=== PATIENT | female | born 1955 | race Caucasian/White ===

== ENCOUNTER 2022-03-06 14:09 | Outpatient (CLI) | payer MEDICARE, SELFPAY ==
[2022-03-07 01:20] LABS: Albumin* 4.1 g/dL (3.3-5.0)
[2022-03-07 01:21] LABS: Chloride* 99 mmol/L (96-114); Sodium* 137 mmol/L (135-149)
[2022-03-07 01:23] LABS: Bilirubin Total* 1.6 mg/dL (0.1-1.5); Carbon Dioxide* 28 mmol/L (20-32); Cholesterol* 230 mg/dL (90-199); Creatinine* 0.9 mg/dL (0.5-1.5); Estimated Glomerular Filt Rate 70 ml/min; Total Protein* 7.7 g/dL (6.0-8.3)
[2022-03-07 01:24] LABS: Alanine Aminotransferase* 29 U/L (4-35); Alkaline Phosphatase* 268 U/L (40-150); Aspartate Amino Transferase* 44 U/L (12-35); Blood Urea Nitrogen* 23 mg/dL (7-30); Calcium* 9.1 mg/dL (8.4-10.6); Glucose* 94 mg/dL (60-115); HDL Cholesterol* 41 mg/dL (>=50); LDL Cholesterol Calculated 129 mg/dL (<100); Triglycerides* 302 mg/dL (40-149)
== END 2022-03-06 14:10 | disposition home or self-care (01) ==
PROVIDERS: PCP Family Medicine; Visit Provider Family Medicine
DX: D64.9 Anemia, unspecified (principal); I10 Essential (primary) hypertension; M35.3 Polymyalgia rheumatica; R73.03 Prediabetes
CPT/HCPCS: 80053; 80061

== ENCOUNTER 2023-03-18 12:40 | Outpatient (RCR) | payer MEDICARE, SELFPAY | END 2023-09-14 23:59 | disposition home or self-care (01) | LOC: CCIC 12:40 | PROVIDERS: PCP Family Medicine; Visit Provider Internal Medicine Hematology & Oncology | DX: I26.99 Other pulmonary embolism without acute cor pulmonale (principal) ==

== ENCOUNTER 2023-05-06 08:37 | Outpatient (CLI) | payer MEDICARE, SELFPAY | END 2023-05-06 08:38 | disposition home or self-care (01) | PROVIDERS: PCP Family Medicine; Visit Provider Family Medicine | DX: Z00.00 Encounter for general adult medical examination without abnormal findings (principal); R73.03 Prediabetes; I10 Essential (primary) hypertension; D64.9 Anemia, unspecified; M35.3 Polymyalgia rheumatica; M62.82 Rhabdomyolysis; I26.99 Other pulmonary embolism without acute cor pulmonale | CPT/HCPCS: 80053; 80061; 85651 ==

== ENCOUNTER 2023-06-16 13:22 | Outpatient (CLI) | payer MEDICARE, SELFPAY ==
--- NOTE | 2023-06-16 14:00 | CRLHL7_ITS ---
For Patients: As a result of the Century Cures Act, medical imaging exams and procedure reports are released immediately into your electronic medical record. You may view this report before your referring provider. If you have questions, please contact your health care provider. DXA BONE MINERAL DENSITY STUDY Reason for exam: Asymptomatic menopausal state. Current height (in): 60. Weight (lb): 125. Menopause age: 58. Ethnicity: White. 1. Have you had a previous hip or vertebral fracture? No. 2. Have you had any fractures during your adult life which did not result from significant trauma (e.g., auto accident)? No. 3. Did either of your parents have a hip fracture? No. 4. Do you smoke? No. 5. Have you ever taken Glucocorticoids? No. 6. Do you have rheumatoid arthritis? No. 7. Do you have secondary osteoporosis? No. 8. Do you drink 3 or more alcoholic drinks per day? No. 9. Are you being treated for osteoporosis? No. 10. Have you ever taken any of the following medications: Actonel, Evista, Fosamax, Miacalcin, Reclast, Boniva, Forteo, HRT (i.e., estrogen/hormone therapy), Protelos, Prolia, Vitamin D, Calcium, other ??? please specify. ANSWER: No. 11. Do you have any of the following medical conditions: Anorexia or bulimia, asthma or emphysema, end stage renal disease, hyperparathyroidism, any seizure disorders, cancer, inflammatory bowel diseases, hysterectomy, other ??? please specify. ANSWER: No. 12. What was your maximum height (inches)? 60. 13. Do you perform weight bearing exercise regularly? No. 14. Do you regularly consume dairy products? Yes. 15. Do you drink caffeinated beverages? Yes. If female: 16. At what age did your period start? Not provided. 17. Are you premenopausal? No. 18. How many full-term pregnancies have you had? 0. 19. Have you ever missed your period for more than 6 months in a row (not including or menopause)? No. TECHNIQUE: Bone mineral density study was performed using the [employer]. FINDINGS: The results of the study expressed as bone mineral density (BMD) are as follows: Lumbar spine L1, L3, L4: BMD: 1.049 g/cm2. T-score: 0.0. Z-score: 2.1. Neck Left: BMD: 0.685 g/cm2. T-score: -1.5. Z-score: 0.3. Right: BMD: 0.727 g/cm2. T-score: -1.1. Z-score: 0.7. Total Left: BMD: 0.821 g/cm2. T-score: -1.0. Z-score: 0.5. Right: BMD: 0.829 g/cm2. T-score: -0.9. Z-score: 0.6. IMPRESSION: Osteopenia. *Comparison exams done prior to 12/2019 were performed on different unit, [facility]. COMPARISON: Compared with scan of 09/12/2020, the bone mineral density has decreased by 12.4 percent at the hip. FRAX 10-year Fracture Risk Major Osteoporotic Fracture: 9.6% Hip Fracture: 1.3% Reported Risk Factors: [place] () Neck BMD= 0.685, BMI= 24.4 Tariq Rosenthal M.D. Diagnostic Radiologist [email or web address]/Dictated by: Tariq Rosenthal MD @ 06/17/2023 9:14:00 AM (Electronically Signed)
--- NOTE | 2023-06-16 15:00 | CRLHL7_ITS ---
For Patients: As a result of the Century Cures Act, medical imaging exams and procedure reports are released immediately into your electronic medical record. You may view this report before your referring provider. If you have questions, please contact your health care provider. INDICATION: ABNORMAL LABS COMPARISON: 04/08/2021 TECHNIQUE: Real time beckett scale imaging and color Doppler analysis was performed of the right upper quadrant. FINDINGS: The liver texture is diffusely heterogeneous with innumerable foci of increased echogenicity throughout the liver, measuring up to 12 millimeters. There is a normal appearance of the hepatic IVC and proximal abdominal aorta. There is no evidence of ascites. The gallbladder is of normal size and there are multiple echogenic and shadowing stones layering within the gallbladder. The gallbladder wall measures 2 mm in thickness. The common bile duct is of normal size and measures 7 mm in diameter at the level of the magaly hepatis. The pancreas appears normal. There is no evidence of a stone or hydronephrosis within the right kidney. The right kidney measures 7.6 cm in length. Heterogeneous area within the upper pole of the right kidney measuring 2.8 x 2.2 x 2.3 cm. IMPRESSION: Interval development of innumerable hyperechoic foci within the liver and possible upper pole right kidney lesion. Pre and postcontrast MRI of the abdomen recommended. Cholelithiasis. Dictated by Tariq Rosenthal MD @ 06/17/2023 9:41:18 AM (Electronically Signed)
== END 2023-06-16 13:23 | disposition home or self-care (01) ==
LOC: RAD 13:24
PROVIDERS: PCP Family Medicine; Visit Provider Family Medicine
DX: Z78.0 Asymptomatic menopausal state (principal); M85.89 Other specified disorders of bone density and structure, multiple sites; R74.8 Abnormal levels of other serum enzymes; K80.20 Calculus of gallbladder without cholecystitis without obstruction
CPT/HCPCS: 76705; 77080

== ENCOUNTER 2023-07-15 07:58 | Outpatient (CLI) | payer MEDICARE, SELFPAY ==
--- NOTE | 2023-07-15 08:15 | CRLHL7_ITS ---
For Patients: As a result of the Century Cures Act, medical imaging exams and procedure reports are released immediately into your electronic medical record. You may view this report before your referring provider. If you have questions, please contact your health care provider. INDICATION: Abnormal liver ultrasound; further assessment. COMPARISON: Ultrasound examination of the right upper quadrant of the abdomen April 08, 2021 and June 16, 2023. TECHNIQUE: Precontrast T1 and T2 weighted imaging; T2 haste imaging; diffusion weighted imaging; in and out of phase imaging; postcontrast imaging including subtraction; 11 cc of Dotarem contrast was injected. FINDINGS: No focal hepatic or splenic pathology. No pancreatic pathology. Cholelithiasis. No evidence of biliary duct dilatation. No adrenal pathology. A 4.3 cm simple cortical cyst lower pole left kidney. 6 mm cystic lesion distal body of the pancreas; rule out side branch IPMN. Interrupted infrarenal inferior vena cava with well compensated collateral venous channels in the anterior abdominal wall. No evidence of abdominal ascites. Impression: 1. Cholelithiasis. 2. 6 mm cystic lesion distal body of the pancreas; rule out side branch IPMN; followup MRCP and MRI of the abdomen in 12 months duration suggested next. 3. A 4.3 cm simple cortical cyst lower pole left kidney. 4. Infrarenal inferior vena cavae is absent with well compensated collateral venous channels in the anterior abdominal wall. Dictated by Ruthie Rashid MD @ 07/20/2023 11:54:28 AM (Electronically Signed)
== END 2023-07-15 07:59 | disposition home or self-care (01) ==
LOC: MRI 07:58
PROVIDERS: PCP Family Medicine; Visit Provider Family Medicine
DX: R93.2 Abnormal findings on diagnostic imaging of liver and biliary tract (principal); R74.8 Abnormal levels of other serum enzymes; K80.20 Calculus of gallbladder without cholecystitis without obstruction; K86.2 Cyst of pancreas; N28.1 Cyst of kidney, acquired
CPT/HCPCS: 74183; A9575

== ENCOUNTER 2023-08-19 10:52 | Outpatient (CLI) | payer MEDICARE, SELFPAY | END 2023-08-19 10:53 | disposition home or self-care (01) | PROVIDERS: PCP Family Medicine; Visit Provider Family Medicine | DX: M25.50 Pain in unspecified joint (principal); M35.3 Polymyalgia rheumatica; I10 Essential (primary) hypertension | CPT/HCPCS: 80053; 86140; 86431 ==

== ENCOUNTER 2023-12-06 11:14 | Outpatient (CLI) | payer MEDICARE, SELFPAY | END 2023-12-06 11:15 | disposition home or self-care (01) | PROVIDERS: PCP Family Medicine; Visit Provider Family Medicine | DX: R74.8 Abnormal levels of other serum enzymes (principal); Z11.1 Encounter for screening for respiratory tuberculosis | CPT/HCPCS: 80076; 86480 ==

== ENCOUNTER 2024-01-03 12:50 | Outpatient (CLI) | payer MEDICARE, SELFPAY | END 2024-01-03 12:51 | disposition home or self-care (01) | LOC: LKVREF 12:51 | PROVIDERS: PCP Family Medicine; Visit Provider Family Medicine | DX: D64.9 Anemia, unspecified (principal); Z13.21 Encounter for screening for nutritional disorder | CPT/HCPCS: 82607; 82728; 83540 ==

== ENCOUNTER 2024-08-17 15:45 | Outpatient (CLI) | payer MEDICAID, SELFPAY | END 2024-08-17 15:46 | disposition home or self-care (01) | PROVIDERS: PCP Family Medicine; Visit Provider Family Medicine | DX: E87.1 Hypo-osmolality and hyponatremia (principal); R74.8 Abnormal levels of other serum enzymes; I10 Essential (primary) hypertension; D64.9 Anemia, unspecified; M06.9 Rheumatoid arthritis, unspecified; K25.9 Gastric ulcer, unspecified as acute or chronic, without hemorrhage or perforation | CPT/HCPCS: 80053; 82728; 83540 ==

== ENCOUNTER 2025-01-27 15:10 | Emergency (ER) | payer MEDICARE, SELFPAY ==
[2025-01-27] VITALS (22 sets, daily range): BP systolic 177–211; BP diastolic 87–120; PULSE 75–89; RESP 9–36; TEMP 36.3; O2SAT 96–98; BMI 23.4
--- NOTE | 2025-01-27 15:11 | CRLHL7_ITS ---
For Patients: As a result of the Century Cures Act, medical imaging exams and procedure reports are released immediately into your electronic medical record. You may view this report before your referring provider. If you have questions, please contact your health care provider. INDICATION: Closed head injury, facial injury. COMPARISON: Same-day head CT and cervical spine CT TECHNIQUE: CT of the facial bones without contrast. Multiplanar axial, coronal, and sagittal reformats were reconstructed. Contrast: None. FINDINGS: BONES AND DENTITION: There is a fracture of the maxillary alveolar ridge underlying the right lateral incisor, right central incisor, and left central incisor (7-9). The fracture does not extend to involve the nasal process of the maxilla or the hard palate. The degree of displacement and involvement of the root of the teeth is best appreciated on sagittal images series 6, image 70. The fracture gap is 5 millimeters. The alveolar dental fragment is posteriorly angulated. There is multifocal dental amalgam. There are some dental caries and periapical lucencies, particularly involving the bilateral maxillary molars. There are not any other facial bone fracture. No focal bone lesions. Normal temporomandibular joint alignment. ORBITS AND GLOBES: Right eye: Normal shape and position of globe. The lens is orthotopically located. No retrobulbar hematoma. The extraocular muscles have a normal course and caliber without signs of entrapment. Left eye: Normal shape and position of globe. The lens is orthotopically located. No retrobulbar hematoma. The extraocular muscles have a normal course and caliber without signs of entrapment. Small partial bilateral mastoid effusions. No middle ear effusion. No temporal bone fracture. PARANASAL SINUS: The paranasal sinuses are well aerated. The nasal septum is not deviated. SOFT TISSUES: Swelling of the upper lip. Atherosclerotic vascular calcifications. No soft tissue mass. No foreign body. Normal appearance of the parotid and salivary glands. IMPRESSION: Mildly displaced anterior maxillary alveolar ridge fracture underlying teeth 7-9, probably class 3. Please note that all CT scans at this facility use dose modulation, iterative reconstruction, and/or weight-based dosing when appropriate to reduce radiation dose to as low as reasonably achievable. Dictated by Albertina Armendariz MD @ 01/27/2025 3:44:26 PM (Electronically Signed)
--- NOTE | 2025-01-27 15:11 | CRLHL7_ITS ---
For Patients: As a result of the Century Cures Act, medical imaging exams and procedure reports are released immediately into your electronic medical record. You may view this report before your referring provider. If you have questions, please contact your health care provider. INDICATION: Closed head injury, facial injury, neck pain. COMPARISON: None. TECHNIQUE: CT of the cervical spine without contrast. Multiplanar axial, coronal, and sagittal reformats were reconstructed. FINDINGS: No fracture. Normal alignment. Multilevel advanced disc degenerative change. Multilevel advanced facet arthritis. Multilevel neural foraminal narrowing. No severe central canal stenosis. No destructive bony lesions. No cervical prevertebral soft tissue swelling. Multinodular goiter. 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 IMPRESSION: 1. No acute or traumatic findings on cervical spine CT. 2. Multinodular goiter. Consider outpatient thyroid ultrasound if not previously performed. 3. Incidentally noted aberrant right subclavian artery. Please note that all CT scans at this facility use dose modulation, iterative reconstruction, and/or weight-based dosing when appropriate to reduce radiation dose to as low as reasonably achievable. Dictated by Albertina Armendariz MD @ 01/27/2025 3:35:03 PM (Electronically Signed)
--- NOTE | 2025-01-27 15:11 | CRLHL7_ITS ---
For Patients: As a result of the Century Cures Act, medical imaging exams and procedure reports are released immediately into your electronic medical record. You may view this report before your referring provider. If you have questions, please contact your health care provider. INDICATION: Closed head injury, facial injury. COMPARISON: Same-day facial bone CT and cervical spine CT TECHNIQUE: CT of the brain / head without intravenous contrast. Multiplanar axial, coronal, and sagittal reformats were reconstructed. FINDINGS: No intracranial hemorrhage. Mild age-related parenchymal volume loss. No acute or subacute cortically based infarct. Scattered white matter hypodensities may be related to chronic microvascular ischemia. Very heavy atherosclerotic vascular calcifications. No mass or mass effect. Normal ventricles. No skull fractures. No worrisome focal bone lesion. Partial bilateral mastoid effusions. The middle ears are clear. IMPRESSION: No acute traumatic intracranial findings. Please note that all CT scans at this facility use dose modulation, iterative reconstruction, and/or weight-based dosing when appropriate to reduce radiation dose to as low as reasonably achievable. Dictated by Albertina Armendariz MD @ 01/27/2025 3:30:38 PM (Electronically Signed)
--- OUTSIDE RECORDS SUMMARY | 2025-01-27 15:12 | XMS_ITS | Encounter Summary ---
Author Organization [facility] Address [address] [place] [address] Care Team Providers Care Slicing Machine Feeder Name Role Phone Reese Willett MD Primary Care Provider [phone] [facility] Primary Care Provider Kai Quijano MD Primary Care Provider Unava Yamileth Kumar MD Primary Care Provider [facility] Unavailable [phone] System, Provider Not In Primary Care Provider Un available Eugene Zimmerman MD Primary Care Provider Unavailab Nestor Ibarra MD Unavailable [phone] Encounter Details Date Type Department Care Team (Late st Contact Info) Description 02/14/2002 Abstract [facility] [address] [address] Reese Willett MD [address] [place] [address] [address] [place] [address] Social History Tobacco Use Types Packs/Day Years Used Date Smoking Tobacco: Never Assessed Comments No Sex and Gender Information Value Date Recorded Sex Assigned at Not on file 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 Gender Identity Not on file Sexual Orientation Not on file documented as of this encounter Plan of Treatment Not on file documented as of this encounter Visit Diagnoses Not on filedocumented in this encounter Care Teams Slicing Machine Feeder Relationship Specialty Start Date End Date Reese Willett MD [address] [place] [address] PCP - General 08/20/01 01/21/15 [facility], [facility] [address] [place] [address] PCP - General 01/22/15 03/11/15 Kai Quijano MD [address] [place] [address] PCP - General Family Practice 03/12/15 02/17/[address] [facility] [address] [place] [address] PCP - General 02/18/16 09/20/18 System, Provider Not In PCP - General Clinic 09/21/18 09/21/18 Eugene Zimmerman MD PCP - General Family Practice 10/06/18 [facility] ([place]) 07/18/18 Nestor Banda MD [address] [place] [address] Assigned Heart and Vascular Provider 04/26/20 06/15/20 documented as of this encounter
--- OUTSIDE RECORDS SUMMARY | 2025-01-27 15:12 | XMS_ITS | Clinical Summary ---
Author Organization [facility] Address [address] [place] [address] Care Team Providers Care Slot Machine Repairer Name Role Phone [facility] [place], [facility] Unavailable Eugene Zimmerman MD Primary Care Provider Unavailab le Allergies Active Allergy Reactions Criticality Noted Date Comments Furosemide 10/03/2018 Other reaction(s): effects kidneys No Clinical Screening - See Comments 10/16/2016 a water pill can't recall which one Pravastatin High 10/03/2018 Other reaction(s): rhabdomyolysis Seafood Swelling High 05/09/2002 shelled seafoods cause throat edema Shellfish Allergy Low 10/03/2018 Other reaction(s): Swallowing probs Medications Elastic Bandages & Supports (JOBST ACTIVE 20-30MMHG MEDIUM) MISC 1 Package daily 1 each 7 Active Fe Bisgly-Vit C-Vit B12-FA (GENTLE IRON PO) Take 1 tablet by mouth daily Active acetaminophen (TYLENOL) 500 MG tablet Take 1,000 mg by mouth 3 times daily as needed for mild pain Active rivaroxaban ANTICOAGULANT (XARELTO) 10 MG TABS tabletIndications :Deep vein thrombosis (DVT) of both lower extremities, unspecified chronicity, unspecified vein (H) Take 1 tablet (10 mg) by mouth daily (with dinner) DO NOT TAKE FOR THE NEXT 2 DAYS, MAY RESUME TAKING THIS MEDICATION ON 01/11/19 90 tablet 1 9 Active pantoprazole (PROTONIX) 40 MG EC tabletIndications :Upper GI bleed Take 1 tablet (40 mg) by mouth 2 times daily (before meals) 60 tablet 3 9 Active Ferrous Gluconate 225 (27 Fe) MG TABS 225 mg Active order for DMEIndications:Op en wound of lower extremity, unspecified laterality, initial encounter,Localiz ed swelling of lower leg,Varicose veins of both lower extremities with pain,Open wound of lower extremity, unspecified laterality, subsequent encounter Lynette's Compression Stockings Velcro compression wraps on right and left lower extremity 30-40 mmHg Length of Need: Life Time # of Pairs 2 3 Device 9 Active triamcinolone (KENALOG) 0.1 % external ointmentIndicatio ns:Venous dermatitis Apply topically daily 450 g 1 9 Active hydrochlorothiazi de (MICROZIDE) 12.5 MG capsuleIndication s:Chronic venous hypertension (idiopathic) with ulcer of bilateral lower extremity (CODE) (H),Bilateral lower extremity edema,Benign essential hypertension Take 1 capsule (12.5 mg) by mouth daily 90 capsule 3 9 Active spironolactone (ALDACTONE) 25 MG tabletIndications :Chronic venous hypertension (idiopathic) with ulcer of bilateral lower extremity (CODE) (H),Bilateral lower extremity edema,Benign essential hypertension Take 1 tablet (25 mg) by mouth daily 90 tablet 3 9 Active Active Problems Problem Noted Date Diagnosed Date Anemia 01/06/2019 Localized swelling of lower leg 09/22/2018 Deep vein thrombosis (DVT) of both lower extremi ties 02/15/2015 Overview (12/05/2018): Bilateral iliac vein and caval mechanical thrombectomy and venoplasty. Upper GI bleed 01/27/2015 Pulmonary embolism 01/22/2015 Hypopotassemia 2002 Essential hypertension, benign 05/09/2002 Resolved Problems Problem Noted Date Diagnosed Date Resolved Date Varicose veins of both lower extremities with pain 09/22/2018 03/09/2019 Venous stasis ulcer of other part of right lower leg limited to breakdown of skin with varicose veins 07/18/2018 03/30/2019 Venous stasis ulcer with fat layer exposed with varicose veins 03/30/2019 Immunizations Immunization Administration Dates Next Due TDAP Vaccine (Adacel) 09/28/2006 Family History Medical History Relation Comments Hypertension Brother b:194/b:2 hx of nervous breakdown Respiratory Brother d:age 3 due to c ongenital lung problem, lungs weren't fully developed Alcohol/Drug Father alcoholism Hypertension Father d:age 60's from self inflicted gunshot wound to head, deemed accidental Hypertension Mother d:early 60's, di ed from fluid in her lungs, tapped at least once Circulatory Sister DVT Family History Negative Sister b:1959 Hypertension Sister b:1947 hx DVT le g, hx nervous breakdown Relation Status Comments Brother Father Mother Sister Social History Tobacco Use Types Packs/Day Years Used Date Smoking Tobacco: Former Cigarettes 1 07/09/1988 - 05/09/1992 Smokeless Tobacco: Never Comments:1986 Alcohol Use Standard Drinks/Week Comments No 0 (1 standard drink = 0.6 oz pur e alcohol) PHQ-2 Answer Date Recorded PHQ-2 Score 0 07/13/2018 Comments No Sex and Gender Information Value Date Recorded Sex Assigned at Not on file 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 Gender Identity Not on file Sexual Orientation Not on file Occupation Industry Job Start Date Job End Date Not on file Not on file Not on file Not on file Not on file Not on file Not on file Not on file Not on file Not on file Not on file 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 Not on file Not on file Last Filed Vital Signs Vital Sign Reading Time Taken Comments Blood Pressure 136/89 03/30/2019 10:33 AM CDT Pulse 81 03/30/2019 10:33 AM CDT Temperature 36.3 C (97.4 F) 03/30/2019 10:33 AM CDT Respiratory Rate 16 03/30/2019 10:33 AM CDT Oxygen Saturation 95% 01/09/2019 2:36 PM CDT Inhaled Oxygen Concentration - - Weight 68.5 kg (151 lb 1.6 oz) 02/09/2019 2:35 P M CDT Height 154.9 cm (5' 1) 02/09/2019 2:35 PM CDT Body Mass Index 28.55 02/09/2019 2:35 PM CDT Plan of Treatment Not on file Insurance [employer] Advance Directives For more information, please contact: [phone] * Full Code (Latest Code Status on File) Date Activated Date Inactivated Comments 01/06/2019 10:46 PM 01/08/2019 12:22 PM Question Answer Comments Code status determined by: Discussion with shashank chan/legal decision maker * Full Code Date Activated Date Inactivated Comments 02/26/2015 12:19 PM 01/06/2019 6:57 PM * Full Code Date Activated Date Inactivated Comments 02/21/2015 11:15 AM 02/26/2015 12:19 PM * Full Code Date Activated Date Inactivated Comments 02/15/2015 11:01 PM 02/21/2015 11:15 AM * Full Code Date Activated Date Inactivated Comments 01/27/2015 1:43 PM 02/01/2015 5:54 PM Care Teams Slot Machine Repairer Relationship Specialty Start Date End Date Eugene Zimmerman MD PCP - General Family Practice 10/06/18 [facility] ([facility] ([place]) 07/18/18
--- OUTSIDE RECORDS SUMMARY | 2025-01-27 15:12 | XMS_ITS | Encounter Summary ---
Author Organization [place] Address [address] [facility] [place] [address] Care Team Providers Care Control And Recovery Combat Rescue Name Role Phone Yamileth Pires MD Primary Care Provider [facility] Unavailable [phone] System, Provider Not In Primary Care Provider Un available Eugene Zimmerman MD Primary Care Provider Unavailab Nestor Ibarra MD Unavailable [phone] Reason for Visit * Reason Comments Medication Refill Encounter Details Date Type Department Care Team (Late st Contact Info) Description [facility]03/2017 [facility] [place] 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 Gender Identity Not on file Sexual Orientation Not on file Occupation Industry Job Start Date Job End Date Not on file Not on file Not on file Not on file Not on file Not on file Not on file Not on file Not on file Not on file 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 Not on file Not on file documented as of this encounter Plan of Treatment Not on file documented as of this encounter Visit Diagnoses Diagnosis Deep vein thrombosis (DVT) of distal vein of lower extremity, unspecified chronicity, unspecified laterality (H)- Primary Deep vein thrombosis (DVT) of both lower extremities (H) documented in this encounter Care Teams Control And Recovery Combat Rescue Relationship Specialty Start Date End Date Yamileth Pires MD [facility] [address] [place] [address] PCP - General 02/18/16 09/20/18 System, Provider Not In PCP - General Clinic 09/21/18 09/21/18 Eugene Zimmerman MD PCP - General Family Practice 10/06/18 [facility] ([facility] ([place]) 07/18/18 Nestor Banda MD [address] [facility] [address] [place] [address] Assigned Heart and Vascular Provider 04/26/20 06/15/20 documented as of this encounter
--- OUTSIDE RECORDS SUMMARY | 2025-01-27 15:12 | XMS_ITS | Clinical Summary ---
Author Organization [facility] Address [address] [place] [id number] Care Team Providers Care Furniture Finisher Apprentice Name Role Phone Raymond Duncan MD Primary Care Provider Kendra Mcclure GENERAL LEDGER BOOKKEEPER Unavailable [phone] Allergies No known active allergies Medications ferrous sulfate, 65 mg elemental, 325 mg (65 mg iron) tablet Take 1 tablet by mouth 2 times daily with meals. 0 5 Active warfarin (COUMADIN) 1 mg tablet Per INR 0 5 Active pantoprazole (PROTONIX) 40 mg delayed-releas e tablet Take 1 tablet by mouth once daily. 0 5 Active acetaminophen (TYLENOL) 500 mg tabletIndicati ons:Pain Take 2 tablets by mouth every 6 hours if needed for Pain. Max acetaminophen dose: 4000mg in 24 hrs. 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 icoagulants with INR goal of 2.0-3.0 03/07/2015 DVT (deep venous thrombosis) 02/28/2015 Acute pulmonary embolism 02/28/2015 Gastrointestinal hemorrhage associated with jose carlos fausto ulcer 02/28/2015 Acute blood loss anemia 02/28/2015 Aftercare following left knee joint replacement surgery 02/28/2015 Breast cancer screening, high risk patient 11/09 Lumpy breasts 11/10/2011 HTN (hypertension) 11/10/2011 Encounters Date Type Department Care Team Description 11/01/2024 Orders Only [facility] Scanner 1 scan: (1-Ord) [facility] 11/01/2024 Transcribe Orders [facility] [place] [address] Eugene Zimmerman MD from Last 3 Months Family History Medical History Relation Name Comments Hypertension Brother Hypertension Father Heart Disease Mother Hypertension Mother Hypertension Sister Relation Name Status Comments Brother Father Mother Sister Social History Tobacco Use Types Packs/Day Years Used Date Smoking Tobacco: Former Smokeless Tobacco: Never Alcohol Use Standard Drinks/Week Comments No 0 (1 standard drink = 0.6 oz pur e alcohol) Comments No Sex and Gender Information Value Date Recorded Sex Assigned at Not on file Legal Sex Female 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 Gender Identity Not on file Sexual Orientation Not on file 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 Not on file Not on file Not on file Obstetrics History Para Term AB IAB SAB Ectopic Multiple Livin g Live Births 0 0 0 0 0 0 0 0 0 0 Last Filed Vital Signs Vital Sign Reading Time Taken Comments Blood Pressure 170/90 11/10/2011 8:40 AM CDT Pulse 67 11/10/2011 8:11 AM CDT Temperature - - Respiratory Rate - - Oxygen Saturation - - Inhaled Oxygen Concentration - - Weight 74.3 kg (163 lb 14.4 oz) 11/10/2011 8:11 AM CDT Height 155.6 cm (5' 1.25) 11/10/2011 8:11 AM CD T Body Mass Index 30.72 11/10/2011 8:11 AM CDT Plan of Treatment Health Maintenance Due Date Last Done Comments Tetanus booster 1964 Depression screening for age 12+ 1965 BMI (ht and wt on same day) for age 18+ 1971 Hepatitis C screening for ag e 18-79 1971 Colonoscopy through age 75 1998 Mammogram for age 45-75 1998 Pneumococcal series for age 50+ (1 of 1 - PCV) 2003 Zoster (shingles) series for age 50+ (1 of 2) 2003 Lipids for age 45-75 11/09/2016 11/10/2011 DEXA/DXA scan for age 65+ 2018 COVID-19 vaccine series (2023- season) 2024 Influenza Vaccine (#1) 2025 RSV vaccine for adults or (1 - 1-dose 75+ series) 2028 Hepatitis B series for 19+ Aged Out N o longer eligible based on patient's age to complete this topic Procedures Procedure Name Priority Date/Time Associated Diagnosis Comments SCAN CORRESP-LABORATORY RESULTS 11/01/2024 1:32 PM CDT LIPID PANEL W REFLEX MEASURED LDL Routine 11/10/2011 9:03 AM CDT HTN (hypertension) from Last 3 Months or Most Recently Relevant to Health Maintenance Results * SCAN CORRESP-LABORATORY RESULTS (11/01/2024 1:32 PM CDT) us Scanner OTHER Final Result * (ABNORMAL) LIPID PANEL W REFLEX MEASURED LDL (11/10/2011 9:03 AM CDT) CHOLESTEROL,TOTAL 179 100 - 199 mg/dL [facility] TRIGLYCERIDES 211(H) <150 mg/dL [facility] HDL CHOLESTEROL 38(L) >40 mg/dL [facility] CHOL/HDL RATIO 4.71(H) <4.50 [facility] LDL CHOLESTEROL 99 <131 mg/dL [facility] PATIENT STATUS Fasting [facility] Blood specimen (specimen) BLOOD SPECIMEN / Unknown 11/10/2011 9:03 AM CDT 11/10/2011 8:55 AM CDT us Raymond Duncan MD CHEMISTRY Final R esult [facility] INTERNAL ZIP [id number] [place], [place] [id number] from Last 3 Months or Most Recently Relevant to Health Maintenance Insurance [facility] Care Teams Furniture Finisher Apprentice Relationship Specialty Start Date End Date Raymond Duncan MD [address] [place] [address] PCP - General Family Practice 10/26/11 Kendra Mcclure NP [address] [place] [address] Nurse Practitioner Nurse Practitioner 02/26/15
--- OUTSIDE RECORDS SUMMARY | 2025-01-27 15:12 | XMS_ITS | Encounter Summary ---
Author Organization [facility] Address [address] [facility] [address] Care Team Providers Care Pre Owned Sales Consultant Name Role Phone Yamileth Pires MD Primary Care Provider [facility] Unavailable [phone] System, Provider Not In Primary Care Provider Un available Eugene Zimmerman MD Primary Care Provider Unavailab Nestor Ibarra MD Unavailable [phone] Reason for Visit * Reason Comments Medication Refill Encounter Details Date Type Department Care Team (Late st Contact Info) Description 02/17/2018 Refill [facility] [place] 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 Ida Fierro BSN, RN * Telephone Encounter - Liyah Coleman PA-C - 02/17/2018 1:32 PM CDT Please schedule her to be seen by Dr. Yang. Last note in chart from 04/2017 was that he would re-evaluate in 6 months if anticoagulation could be stopped. She never followed up. documented in this encounter Plan of Treatment Not on file documented as of this encounter Visit Diagnoses Diagnosis Deep vein thrombosis (DVT) of distal vein of lower extremity, unspecified chronicity, unspecified laterality (H) documented in this encounter Care Teams Pre Owned Sales Consultant Relationship Specialty Start Date End Date Yamileth Pires MD [facility] [address] [place] [address] PCP - General 02/18/16 09/20/18 System, Provider Not In PCP - General Clinic 09/21/18 09/21/18 Eugene Zimmerman MD PCP - General Family Practice 10/06/18 [facility] ([facility] ([place]) 07/18/18 Nestor Banda MD [address] [facility] [address] [place] [address] Assigned Heart and Vascular Provider 04/26/20 06/15/20 documented as of this encounter
--- OUTSIDE RECORDS SUMMARY | 2025-01-27 15:12 | XMS_ITS | Clinical Summary ---
Author Organization [facility] Address [address] [place] [address] Care Team Providers Care Book Sewing Machine Operator Name Role Phone Unassigned, Provider Primary Care Provider Unava ilable Source Comments You are receiving this document as you are listed as the primary care provider,follow-up provider, or the patient has been referred to you for consultation.This is in compliance with the Medicare and[facility] EHR Incentive Program,which states Providers who transition their patient to another setting of careor provider of care or refers their patient to another provider of care shouldprovide summary care record for each transition of care or referral. [place] Allergies Active Allergy Reactions Criticality Noted Date Comments Other Other, see comments High 02/26/2019 Allergy to water pill. Can't remember name. States it dries out her liver. Medications rivaroxaban (XARELTO) 10 MG tablet Take 10 mg by mouth every evening with a meal. Active pantoprazole (PROTONIX) 20 MG tablet Take 20 mg by mouth daily. Active hydroCHLOROthia zide 12.5 MG capsule Take 12.5 mg by mouth daily. Active spironolactone (ALDACTONE) 25 MG tablet Take 25 mg by mouth daily. Active ferrous gluconate 225 (27 Fe) MG 225 mg three times a day with meals. Active Active Problems No known active problems Social History Tobacco Use Types Packs/Day Years Used Date Smoking Tobacco: Never Smokeless Tobacco: Never Comments Unknown Sex and Gender Information Value Date Recorded Sex Assigned at Not on file Legal Sex Female 5:02 AM CDT Gender Identity Not on file Sexual Orientation Not on file Last Filed Vital Signs Vital Sign Reading Time Taken Comments Blood Pressure 146/93 02/26/2019 8:14 AM CDT Pulse 91 02/26/2019 8:14 AM CDT Temperature 36.7 C (98.1 F) 02/26/2019 8:14 AM CDT Respiratory Rate 16 02/26/2019 8:14 AM CDT Oxygen Saturation 98% 02/26/2019 8:14 AM CDT Inhaled Oxygen Concentration - - Weight - - Height - - Body Mass Index - - Plan of Treatment Health Maintenance Due Date Last Done Comments Colon Cancer Screening Plan Due 1955 Hep C Screening (Preventive Services) 1955 Mammogram 1955 Adult Preventive Visit 1971 Cholesterol 1998 Zoster/Shingles Vaccine (1 of 2) 2003 Dexa 2018 Pneumococcal Vaccine 50+ Yrs (2 of 2 - PCV) 02/07/2021 02/08/2020 COVID-19 Vaccine (3 - season) 2024 10/01/2020, 09/10/2020 Influenza Vaccine (#1) 2025 8, 04/22/2017, 04/18/2015, Additional history exists DTaP/Tdap/Td Vaccine (3 - Tdap) 07/29/2026 07/29/2016, 09/28/2006 RSV Vaccine (1 - 1-dose 75+ series) 2028 HepA Vaccine Aged Out No longer eligi ble based on patient's age to complete this topic HepB Vaccine Aged Out No longer eligi ble based on patient's age to complete this topic Hib Vaccine Aged Out No longer eligi ble based on patient's age to complete this topic MCV4 Vaccine Aged Out No longer eligi ble based on patient's age to complete this topic Meningococcal B Vaccine Aged Out No l onger eligible based on patient's age to complete this topic Insurance [facility] [phone] [place] [address] [address] [id number] [place] [address] BC OUT OF STATE MEDICARE PART A Care Teams Book Sewing Machine Operator Relationship Specialty Start Date End Date Unassigned, Provider [address] [place] [address] PCP - General 06/12/00
--- NOTE | 2025-01-27 15:58 | ED.GENADULT ---
HPI - General Adult General Chief complaint: Fall/Minor Trauma Stated complaint: Mouth Injury Time Seen by Provider: 01/27/25 15:11 History of Present Illness HPI narrative: [facility] brought pt in, had tripped over walker face forward, 2 front teeth pushed inward. pt was at [facility] in [place], denies etoh, pt does not drink , goes to play pulltabs and eat. per ems nystagmus is baseline per computer forensics technician who sees her regularly. 69-year-old woman presenting to the emergency department via EMS following a trip and fall event over her walker at [facility] where she goes to play pull tabs. She is noted To have injured her upper dentition. Apparently has not been drinking and is not thought to be intoxicated. TTA called on arrival. She is not feeling like she has much pain. EMS thought that she had some upper abdominal discomfort exam. Did have some neck pain per their report which she says is now improved. Denies back pain. Denies abdominal pain when asked. It does not sound as though there was a loss of consciousness. Known underlying gait difficulties. History of DVT taking Xarelto Related Data Home Medications ?Medication ?Instructions ?Recorded ?Confirmed acetaminophen 325 mg capsule 325 mg PO ONCE PRN 05/06/23 08/17/24 (Tylenol) hydroxychloroquine 200 mg tablet 200 mg PO DAILY 01/03/24 08/17/24 prednisone 10 mg tablet mg PO 02/24/24 08/17/24 Previous Rx's ?Medication ?Instructions ?Recorded spironolactone 50 mg tablet 50 mg PO DAILY #90 tabs 05/06/23 calcium ER 600 mg (as carb,cit)-D3 2 tab PO QDAY #180 tabs 12/06/23 12.5 mcg (500 unit) tablet, ext.rel (Citracal-D3 Slow Release) diclofenac sodium 1 % topical gel 4 g topical QID PRN pain #100 grams 12/06/23 (Voltaren Arthritis Pain) iron,carbonyl 65 mg-vitamin C 125 1 tab PO BID #180 tabs 08/17/24 mg tablet,delayed release (Vitron-C) omeprazole 20 mg capsule,delayed 20 mg PO BID #180 caps 08/17/24 release rivaroxaban 10 mg tablet (Xarelto) 5 mg (1/2 x 10 mg) PO QDAY #90 tabs 08/17/24 hydrochlorothiazide 25 mg tablet 25 mg PO DAILY #90 tabs 08/22/24 prednisone 5 mg tablet 5 mg PO Q OTHER DAY #45 tabs 08/23/24 Allergies Allergy/AdvReac Type Severity Reaction Status Date / Time pravastatin AdvReac Severe rhabdomyoly Verified 08/17/24 15:19 sis furosemide AdvReac Unknown effects Verified 08/17/24 15:19 kidneys Shellfish Allergy Allergy Mild swallowing Uncoded 08/17/24 15:19 probs Review of Systems Status of ROS: Reports: 6 or more systems reviewed and unremarkable except as noted in History and below [facility] Medical History Deep vein thrombosis (04/12/15) ?I82.409 - Acute embolism and thrombosis of unspecified deep veins of unspecified lower extremity (ICD-10) Pulmonary embolism ?I26.99 - Other pulmonary embolism without acute cor pulmonale (ICD-10) Rhabdomyolysis ?M62.82 - Rhabdomyolysis (ICD-10) Dry skin dermatitis ?L85.3 - Xerosis cutis (ICD-10) Osteopenia ?M85.80 - Other specified disorders of bone density and structure, unspecified site (ICD-10) Rheumatoid arthritis ?M06.9 - Rheumatoid arthritis, unspecified (ICD-10) Abnormal ultrasound of liver ?R93.2 - Abnormal findings on diagnostic imaging of liver and biliary tract (ICD-10) Elevated alkaline phosphatase level ?R74.8 - Abnormal levels of other serum enzymes (ICD-10) Postmenopausal estrogen deficiency ?Z78.0 - Asymptomatic menopausal state (ICD-10) Deep vein thrombosis (04/04/15) ?I82.409 - Acute embolism and thrombosis of unspecified deep veins of unspecified lower extremity (ICD-10) Polymyalgia rheumatica ?M35.3 - Polymyalgia rheumatica (ICD-10) Social History Smoking Status: Former smoker How often do you have a drink containing alcohol: never AUDIT-C Alcohol total score: 0 Non-prescribed substance use: denies use Exam Narrative: Exam Narrative: Primary survey Vitals are noted with elevated blood pressure. Breathing looks to be easy, open. Bleeding from her mouth. Pleasant. Quite alert. Cranial nerves 2-12 look to be grossly intact. Has gauze placed in her mouth. Is blood-stained. Pupils are equal. Appropriately reactive. Extraocular movements are full though they are seeming to demonstrate bilateral nystagmus though it feels as though it is that she just has trouble tracking/cooperating with exam. Slightly lower left upper eyelid than the right. No fluid head external ear canals. No Max sign. She is not tender at this time to neck palpation. She is in a cervical collar. Moving all extremities without difficulty. GCS of 15 Secondary survey Head otherwise looks to be atraumatic. More on the lip and dentition -- oozing blood from would look to be markedly novel/displaced interiorly dentition for teeth numbers 7, 8 and 9 with tooth 7 looking to be fractured longitudinally. Neck again as above is nontender at this time but in a C-collar. Chest is without pain to palpation over the clavicles or upper chest. The lungs appear to be clear. Heart in regular rate with some ectopic beats. Abdomen is soft and a little tender in the upper abdomen which she says is chronically sensitive. She does have some subtle bluing of vascularity in the area. There is also a swelling a little less than half racquet ball sized right of midline in the upper abdomen. She says this is a known hernia. Pelvis is without discomfort to anterior iliac crest palpation or to palpation of the hips elsewhere. She is flexing the hips without difficulty or pain. Extremities with some dry blood staining on her fingers and dry lower extremities excoriations. Hammertoe of the right 2nd toe. Back is without tenderness or deformity. Reexamination of mouth with an irregular laceration of the buccal mucosa of the upper right lip. Slightly oozing. 2.5 cm in length. 1 cm disruption on the outer lip as well presumed from Internal puncture. Const: Vital Signs, click to edit/add: Vital Signs - 24 hr 01/27/25 15:15 01/27/25 15:29 01/27/25 15:30 Temperature 97.4 F L Pulse Rate 82 80 Pulse Rate [Pulse Oximeter] 81 Respiratory Rate 20 10 L Blood Pressure 211/93 H Blood Pressure [Ri ght Upper Arm] 181/103 H Pulse Oximetry 98 97 98 Oxygen Delivery Me thod Room Air 01/27/25 15:31 01/27/25 15:37 01/27/25 15:42 Temperature Pulse Rate 77 89 82 Pulse Rate [Pulse Oximeter] Respiratory Rate 25 H 12 11 L Blood Pressure 208/87 H 183/95 H Blood Pressure [Ri ght Upper Arm] Pulse Oximetry 98 98 97 Oxygen Delivery Me thod 01/27/25 15:45 01/27/25 15:52 01/27/25 15:53 Temperature Pulse Rate Pulse Rate [Pulse Oximeter] Respiratory Rate 36 H 9 L 12 Blood Pressure 199/95 H Blood Pressure [Ri ght Upper Arm] Pulse Oximetry Oxygen Delivery Me thod 01/27/25 16:00 01/27/25 16:02 01/27/25 16:11 Temperature Pulse Rate 76 Pulse Rate [Pulse Oximeter] Respiratory Rate 14 Blood Pressure 196/120 H 208/100 H Blood Pressure [Ri ght Upper Arm] Pulse Oximetry 98 Oxygen Delivery Me thod Documenting provider has reviewed patient's vital signs: yes Course Vital Signs Vital signs: Initial Vital Signs Temperature 97.4 F L 01/27/25 15:15 Temperature Source Temporal Artery Scan 01/27/25 15:15 Pulse Rate 81 01/27/25 15:15 Respiratory Rate 20 01/27/25 15:15 Blood Pressure 181/103 H 01/27/25 15:15 Blood Pressure Mean 129 H 01/27/25 15:15 Blood Pressure Position Supine 01/27/25 15:15 Pulse Oximetry 98 01/27/25 15:15 Oxygen Delivery Method Room Air 01/27/25 15:15 Vital Signs Temperature 97.4 F L 01/27/25 15:15 Pulse Rate 81 01/27/25 15:15 Respiratory Rate 20 01/27/25 15:15 Blood Pressure 181/103 H 01/27/25 15:15 Pulse Oximetry 98 01/27/25 15:15 Oxygen Delivery Method Room Air 01/27/25 15:15 Temperature 97.4 F L 01/27/25 15:15 Pulse Rate 76 01/27/25 16:00 Respiratory Rate 14 01/27/25 16:00 Blood Pressure 208/100 H 01/27/25 16:11 Pulse Oximetry 98 01/27/25 16:00 Oxygen Delivery Method Room Air 01/27/25 15:15 Medical Decision Making MDM Narrative Medical decision making narrative: Does not appear to have sustained significant injury elsewhere other than her face. Will be imaging head facial bones an neck at this time. I suspect dental and maxillary bone fracture at a minimum. Continue to monitor closely though for evolution of other symptoms to warrant further evaluation. Head CT independently reviewed by me does not appear to show any acute abnormality to the calvarium and without apparent intracranial bleed. Facial bones by my independent review clearly show fractured maxillary alveolar bone/ridge with mild displacement and internal angulation of dentition as mentioned above. Cervical spine looks to be without acute abnormality. INDICATION: Closed head injury, facial injury. COMPARISON: Same-day head CT and cervical spine CT TECHNIQUE: CT of the facial bones without contrast. Multiplanar axial, coronal, and sagittal reformats were reconstructed. Contrast: None. FINDINGS: BONES AND DENTITION: There is a fracture of the maxillary alveolar ridge underlying the right lateral incisor, right central incisor, and left central incisor (7-9). The fracture does not extend to involve the nasal process of the maxilla or the hard palate. The degree of displacement and involvement of the root of the teeth is best appreciated on sagittal images series 6, image 70. The fracture gap is 5 millimeters. The alveolar dental fragment is posteriorly angulated. There is multifocal dental amalgam. There are some dental caries and periapical lucencies, particularly involving the bilateral maxillary molars. There are not any other facial bone fracture. No focal bone lesions. Normal temporomandibular joint alignment. ORBITS AND GLOBES: Right eye: Normal shape and position of globe. The lens is orthotopically located. No retrobulbar hematoma. The extraocular muscles have a normal course and caliber without signs of entrapment. Left eye: Normal shape and position of globe. The lens is orthotopically located. No retrobulbar hematoma. The extraocular muscles have a normal course and caliber without signs of entrapment. Small partial bilateral mastoid effusions. No middle ear effusion. No temporal bone fracture. PARANASAL SINUS: The paranasal sinuses are well aerated. The nasal septum is not deviated. SOFT TISSUES: Swelling of the upper lip. Atherosclerotic vascular calcifications. No soft tissue mass. No foreign body. Normal appearance of the parotid and salivary glands. IMPRESSION: Mildly displaced anterior maxillary alveolar ridge fracture underlying teeth 7-9, probably class 3. Please note that all CT scans at this facility use dose modulation, iterative reconstruction, and/or weight-based dosing when appropriate to reduce radiation dose to as low as reasonably achievable. Dictated by Albertina Armendariz MD @ 01/27/2025 3:44:26 PM INDICATION: Closed head injury, facial injury. COMPARISON: Same-day facial bone CT and cervical spine CT TECHNIQUE: CT of the brain / head without intravenous contrast. Multiplanar axial, coronal, and sagittal reformats were reconstructed. FINDINGS: No intracranial hemorrhage. Mild age-related parenchymal volume loss. No acute or subacute cortically based infarct. Scattered white matter hypodensities may be related to chronic microvascular ischemia. Very heavy atherosclerotic vascular calcifications. No mass or mass effect. Normal ventricles. No skull fractures. No worrisome focal bone lesion. Partial bilateral mastoid effusions. The middle ears are clear. IMPRESSION: No acute traumatic intracranial findings. Please note that all CT scans at this facility use dose modulation, iterative reconstruction, and/or weight-based dosing when appropriate to reduce radiation dose to as low as reasonably achievable. Dictated by Albertina Armendariz MD @ 01/27/2025 3:30:38 PM INDICATION: Closed head injury, facial injury, neck pain. COMPARISON: None. TECHNIQUE: CT of the cervical spine without contrast. Multiplanar axial, coronal, and sagittal reformats were reconstructed. FINDINGS: No fracture. Normal alignment. Multilevel advanced disc degenerative change. Multilevel advanced facet arthritis. Multilevel neural foraminal narrowing. No severe central canal stenosis. No destructive bony lesions. No cervical prevertebral soft tissue swelling. Multinodular goiter. 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 IMPRESSION: 1. No acute or traumatic findings on cervical spine CT. 2. Multinodular goiter. Consider outpatient thyroid ultrasound if not previously performed. 3. Incidentally noted aberrant right subclavian artery. Please note that all CT scans at this facility use dose modulation, iterative reconstruction, and/or weight-based dosing when appropriate to reduce radiation dose to as low as reasonably achievable. Dictated by Albertina Armendariz MD @ 01/27/2025 3:35:03 PM Blood pressures have gone as high as the 210s over 100. Improved on rechecks. She does except offer of anesthetizing the upper dentition. I do return with 0.25% bupivacaine which inject a total of 3 mL spread across the upper central buccal mucosa. Given significant degree of injury to dentition I do place a call to [facility] [place] who are thankfully accepting for further cares. Medical Records Medical records reviewed: Yes I reviewed the patient's medical records Critical Care Time Critical Care Time Critical Care Time: Yes Attestation: The patient required my highest level preparedness to intervene emergently and I personally spent this critical care time directly and personally managing the patient. This critical care time included: Obtaining a history; Examining the patient; Pulse oximetry; Ordering and reviewing of studies; Arranging urgent treatment with development of a management plan; Evaluation of patients response to treatment; Frequent reassessment discussions with other providers. This critical care time was performed to assess and manage the high probability of imminent life-threatening deterioration that could result in multiorgan failure. It was exclusive of separate billable procedures and treating other patients and teaching time. Total Critical Care Time in Minutes: 50 Discharge Plan Discharge Clinical Impression: Closed head injury, Fracture of alveolar process of maxilla, Laceration of lip Patient Disposition: [facility] Hospital Discharge Location: [facility] Condition: Stable
== END 2025-01-27 17:56 | disposition short-term general hospital (02) ==
LOC: ED 16:52
PROVIDERS: Emergency Provider Family Medicine; PCP Family Medicine
DX: S02.42XA Fracture of alveolus of maxilla, initial encounter for closed fracture (principal); S01.511A Laceration without foreign body of lip, initial encounter; W19.XXXA Unspecified fall, initial encounter
CPT/HCPCS: 70450; 70486; 72125; 99284; 99291; G0390; J7030

== ENCOUNTER 2025-01-27 17:37 | Outpatient (CLI) | payer MEDICARE, SELFPAY | END 2025-01-27 17:38 | disposition home or self-care (01) | LOC: AMB 01-28 10:37 | PROVIDERS: PCP Family Medicine; Visit Provider Emergency Medicine | DX: S09.93XA Unspecified injury of face, initial encounter (principal); W01.0XXA Fall on same level from slipping, tripping and stumbling without subsequent striking against object, initial encounter; Y93.9 Activity, unspecified; Y92.480 Sidewalk as the place of occurrence of the external cause | CPT/HCPCS: A0425; A0427 ==

== ENCOUNTER 2025-04-10 09:36 | Outpatient (CLI) | payer MEDICARE, SELFPAY | END 2025-04-10 09:37 | disposition home or self-care (01) | PROVIDERS: PCP Family Medicine; Visit Provider Family Medicine | DX: D64.9 Anemia, unspecified (principal); R35.0 Frequency of micturition; I10 Essential (primary) hypertension; M06.9 Rheumatoid arthritis, unspecified; M35.3 Polymyalgia rheumatica | CPT/HCPCS: 80053; 82607; 82728; 83540; 83550; 87086 ==

== ENCOUNTER 2025-04-23 10:54 | Outpatient (CLI) | payer MEDICARE, SELFPAY | END 2025-04-23 10:55 | disposition home or self-care (01) | LOC: NFLDREF 05-04 00:11 | PROVIDERS: PCP Family Medicine; Referring Provider Family Medicine; Visit Provider Family Medicine | DX: D61.818 Other pancytopenia (principal) | CPT/HCPCS: 82525; 82746 ==

== ENCOUNTER 2025-06-11 09:07 | Outpatient (CLI) | payer MEDICARE, SELFPAY ==
--- NOTE | 2025-06-11 09:15 | CRLHL7_ITS ---
For Patients: As a result of the Century Cures Act, medical imaging exams and procedure reports are released immediately into your electronic medical record. You may view this report before your referring provider. If you have questions, please contact your health care provider. INDICATION: Pancytopenia TECHNIQUE: Ultrasound abdomen complete. Sonographic images of the entire abdomen were obtained using beckett-scale and color Doppler. COMPARISON: MRI abdomen July 15, 2023 FINDINGS: Liver: Stable with no new abnormality, no masses. No intrahepatic biliary dilatation. Gallbladder: Small stone with shadowing. Normal wall thickness. No pericholecystic fluid. Common bile duct: 5 mm. Pancreas: Limited evaluation. Spleen: 13.7cm. No splenic mass lesion. Right kidney: 8.0 cm. Left kidney: 8.1 cm. Kidneys are unremarkable, no hydronephrosis or mass. 5 centimeter benign-appearing left renal cyst. Vasculature: Proximal abdominal aorta and IVC are normal in caliber. No visualized IVC thrombus. IMPRESSION: : 1. Splenomegaly minimally increased with the spleen previously measuring 13.3 centimeters. 2. Single shadowing stone in the gallbladder with no biliary dilatation. 3. 5 centimeter simple large left renal cyst. Dictated by Vivek Tafoya MD @ 06/11/2025 10:48:58 AM (Electronically Signed)
== END 2025-06-11 09:08 | disposition home or self-care (01) ==
PROVIDERS: PCP Family Medicine; Visit Provider Internal Medicine Hematology & Oncology
DX: D61.818 Other pancytopenia (principal); R16.1 Splenomegaly, not elsewhere classified; K80.20 Calculus of gallbladder without cholecystitis without obstruction; N28.1 Cyst of kidney, acquired
CPT/HCPCS: 76700